=== PATIENT | male | born 1940 | race Caucasian/White ===

== ENCOUNTER 2016-08-31 07:37 | Emergency (ER) | payer MEDICARE, BC ==
[2016-08-31 07:43] VITALS: BP 140/73
--- NOTE | 2016-08-31 08:27 | UC ---
aleta Cordoba Timothy, scribed for Georgina Marquez MD on 08/31/16 at 0757 . Skin Complaint HPI - HPI Summary HPI Summary: Ivan Toro is a 76 yo male presenting to [facility] with an area of discolored skin on his RLE proximay fan since yesterday. He denies any pruritus, known trauma, or pain at the site. PT states he was working on a ladder yesterday cleaning windows and is unsure if related to this. He states the area has not grown any larger. He denies any known tick bite or expsosure. No fevers, chills , no red streaking, no edema. no wound or drainage. No change in size or color. He states he was working on a ladder yesterday, and may have bumped it without noticing. He currently is on a daily regimen of 81mg ASA. No known clotting or bleeding disorder. He is not in any current pain. pt without a h/o tick bites. No immunocompromised. His MHx includes HTN, deviated septum, uvula removed, left kidney stones. Pt medication list reviewed this visit. - History of Current Complaint Chief Complaint: UCSkin Time Seen by Provider: 08/31/16 08:09 Stated Complaint: SOFT TISSUE COMPLAINT Hx Obtained From: Patient Onset/Duration: Sudden Onset Onset Severity: Mild Current Severity: Mild Pain Intensity: 0 Pain Scale Used: 0-10 Numeric Location: Discrete, Other - RLE afn Character: Redness - ecchymosis Aggravating: Nothing Alleviating: Nothing Associated Signs & Symptoms: Positive: Negative, Rash - Allergy/Home Medications Allergies/Adverse Reactions: Allergies Allergy/AdvReac Type Severity Reaction Status Date / Time cat dander Allergy Intermediate Runny Nose Uncoded 08/12/14 07:45 dogs Allergy Intermediate Runny Nose Uncoded 08/12/14 07:45 Review of Systems Constitutional: Negative Skin: Other - RLE fan nikolski of erythema/ecchymosis Eyes: Negative ENT: Negative Respiratory: Negative Cardiovascular: Negative Gastrointestinal: Negative Genitourinary: Negative Motor: Negative Neurovascular: Negative Musculoskeletal: Negative Neurological: Negative Psychological: Negative All Other Systems Reviewed And Are Negative: Yes PMH/Surg Hx/FS Hx/Imm Hx Previously Healthy: Yes GI/ History: Kidney Stones - Surgical History Surgical History: Yes Surgery Procedure, Year, and Place: Deviated Septum; uvula removed; L kidney stone - Family History Known Family History: Positive: Cardiac Disease - mother, Other - mother of CVA no FHx bleeding disorder - Social History Lives: With Family Alcohol Use: Daily Substance Use Type: None Smoking Status (MU): Never Smoked Tobacco - Immunization History Most Recent Tetanus Shot: no recall Physical Exam Triage Information Reviewed: Yes Appearance: Well-Appearing, No Pain Distress, Well-Nourished Vital Signs: Initial Vital Signs Temp 98.4 F 08/31/16 07:40 Pulse 69 08/31/16 07:40 Resp 16 08/31/16 07:40 BP 140/73 08/31/16 07:40 Pulse Ox 100 08/31/16 07:40 Vital Signs Reviewed: Yes Eyes: Negative: Discharge ENT: Positive: Hearing grossly normal Neck: Positive: Supple Respiratory: Positive: No respiratory distress, No accessory muscle use Cardiovascular: Positive: Other: - 2+ PT Musculoskeletal Exam: Normal Musculoskeletal: Positive: Strength Intact, Other: - SLE b/l full flex/ext knee , ankle + great toe extension Neurological Exam: Normal Neurological: Positive: Alert Psychological Exam: Normal Skin: Positive: Other - right anterior midshin - pt with 2x3 area of mild ecchymosis, uniform color throughout. No edema. No red streaking. no crepitus. no central clearing. Non tender not raised Course/Dx - Course Course Of Treatment: Ivan Toro is a 76 yo male presenting to [facility] with an area of discolored skin on his RLE fan since yesterday. Pt is concerned for tick bite. I had a long discussion with pt regarding tick, lyme transmission, target lesions. Pt without known tick exposure. Not target appearing lesions - uniform, appears more ecchymosis. No open wounds. Not immunocompromised. d/w s/s infection, cellulitis - will monitor. No additional treatment. pt comfortable and in agreement. Return precautions discussed - Differential Diagnoses - Skin Complaint Differential Diagnoses: Cellulitis, Other - ecchymosis - Diagnoses Provider Diagnoses: contusion RLE Discharge - Discharge Plan Condition: Stable Disposition: HOME Patient Education Materials: Contusion in Adults (ED) Referrals: David Balderas MD [Primary Care Provider] - If Needed Additional Instructions: Monitor your wound - if you develop increase in size, red streaking, pain, fever , chills, or a white area in the center of your wound you should contact your doctor or return to the urgent care okay to alternate ibuprofen (advil, motrin) and tylenol as needed for pain Stay well hydrated Avoid further trauma to the area Call your doctor or return with questions or concerns Please follow up with your primary care physician regarding your visit to urgent care today. Return to urgent care with any new symptoms, questions, or concerns. The documentation as recorded by the aleta cleveland Timothy accurately reflects the service I personally performed and the decisions made by , Georgina Marquez MD.
== END 2016-08-31 08:23 | disposition home or self-care (01) ==
LOC: UCEAST 07:37
DX: S80.11XA Contusion of right lower leg, initial encounter (principal); X58.XXXA Exposure to other specified factors, initial encounter; Z79.82 Long term (current) use of aspirin; I10 Essential (primary) hypertension
CPT/HCPCS: 99211; G0463

== ENCOUNTER 2016-12-08 07:03 | Emergency (ER) | payer MEDICARE, BC ==
[2016-12-08] MEDS ORDERED: methylPREDNISolone 125 MG* 2 ML VIAL IM ONE (07:49)
[2016-12-08] MEDS ORDERED: diPHENhydraMINE PO* 25 MG PO ONE (07:50)
[2016-12-08 08:15] VITALS: BP 128/69
--- NOTE | 2016-12-18 16:51 | UC ---
Suraj Cordoba Nilda, scribed for Shalini Norris DO on 12/08/16 at 0800 . Skin Complaint HPI - HPI Summary HPI Summary: This patient is a 76 year old M presenting to [facility] accompanied by with a chief complaint of a constant diffuse pruritic rash that woke him last night. The rash is still present and located on his back, pelvic area, chest, bilateral UE, and bilateral LE. Symptoms aggravated and alleviated by nothing. Patient reports recent weight loss (18 lbs over the past 3 months) and stressors. He denies dizziness, lightheadedness, recent confusion, nausea, vomiting, diarrhea, abdominal pain or cramping, CP, cough, dyspnea, wheezing, swelling of the tongue or lips, fever, and chills. He has not used new medications, soaps, and detergents. He denies dietary changes and recent travel. - History of Current Complaint Chief Complaint: EDRashSkinAbscess Stated Complaint: RASH Hx Obtained From: Patient Onset/Duration: Sudden Onset, Lasting Hours, Still Present Timing: Constant Current Severity: Moderate Pain Intensity: 0 Pain Scale Used: 0-10 Numeric Location: Diffuse, Other - back, lower abdomen, bilaterally LE, chest, arms Character: Pruritus Aggravating Factor(s): Nothing Alleviating Factor(s): Nothing Associated Signs & Symptoms: Positive: Rash. Negative: Nausea, Vomiting, Difficulty Breathing, Fever, Chills, Cough, Wheezing, Abdominal Pain, Lightheadedness - Allergy/Home Medications Allergies/Adverse Reactions: Allergies Allergy/AdvReac Type Severity Reaction Status Date / Time cat dander Allergy Intermediate Runny Nose Uncoded 12/01/16 07:17 dogs Allergy Intermediate Runny Nose Uncoded 12/01/16 07:17 Review of Systems Constitutional: Negative - negative fever, chills, Other - recent weight loss Skin: Rash ENT: Negative - negative swelling of the tongue and lips Respiratory: Negative - negative cough, dyspnea and wheezing Cardiovascular: Negative - negative chest pain Gastrointestinal: Negative - Negative nausea, vomiting, diarrhea, and abdominal pain or cramping Psychological: Negative - negative confusion, lightheadedness, and dizziness. All Other Systems Reviewed And Are Negative: Yes PMH/Surg Hx/FS Hx/Imm Hx Respiratory History: Other - Negative seasonal allergies Other Respiratory History: Negative seasonal allergies - Surgical History Surgical History: Yes Surgery Procedure, Year, and Place: Deviated Septum; uvula removed; L kidney stone - Family History Known Family History: Positive: Cardiac Disease - mother, Other - mother of CVA, rheumatoid arthritis; no FHx bleeding disorder - Social History Alcohol Use: Daily Substance Use Type: None Smoking Status (MU): Never Smoked Tobacco - Immunization History Most Recent Influenza Vaccination: utd Most Recent Tetanus Shot: no recall Most Recent Pneumonia Vaccination: utd Physical Exam Triage Information Reviewed: Yes Appearance: Well-Appearing, No Pain Distress, Well-Nourished Vital Signs: Initial Vital Signs Temp 97.6 F 12/08/16 07:17 Pulse 59 12/08/16 07:17 Resp 18 12/08/16 07:17 BP 133/66 12/08/16 07:17 Vital Signs Reviewed: Yes Eyes: Positive: Conjunctiva Clear. Negative: Discharge ENT: Positive: Hearing grossly normal, Other: - No mucocutaneous manifestations , no sores in mouth. Negative: Muffled/hoarse voice Neck exam: Normal Neck: Positive: Supple Respiratory: Positive: Lungs clear, Normal breath sounds, No respiratory distress, No accessory muscle use Cardiovascular: Positive: RRR, No Murmur Abdomen Description: Positive: Nontender, Soft. Negative: Distended, Guarding Bowel Sounds: Positive: Present Musculoskeletal Exam: Normal Neurological: Positive: Alert, Muscle Tone Normal Psychological Exam: Normal Psychological: Positive: Age Appropriate Behavior Skin: Positive: rashes - Diffuse urticarial rash sparing his face Course/Dx - Course Course Of Treatment: This patient is a 76 year old M presenting to [facility] accompanied by with a chief complaint of a constant diffuse pruritic rash that woke him last night. The rash is located on his back, pelvic area, chest, bilateral UE, and bilateral LE. Symptoms aggravated and alleviated by nothing. Patient reports recent weight loss (18 lbs over the past 3 months) and stressors. He denies dizziness, lightheadedness, recent confusion, nausea, vomiting, diarrhea, abdominal pain or cramping, CP, cough, dyspnea, wheezing, swelling of the tongue or lips, fever, and chills. He has not used new medications, soaps, and detergents. He denies dietary changes and recent travel. In the ED course the patient was given a shot of prednisone and PO Benadryl. Patient will be discharged with a diagnosis of urticaria and elevated blood pressure without diagnosis of hypertension. He was given a prescription for prednisone. The patient was instructed to follow up with Dr. Balderas tomorrow. The patient is agreeable with this plan. - Diagnoses Provider Diagnoses: Urticaria and Elevated blood pressure without diagnosis of hypertension. Discharge - Discharge Plan Condition: Stable Disposition: HOME Prescriptions: predniSONE TAB* [Deltasone TAB*] 40 mg PO DAILY #8 tab Patient Education Materials: Diphenhydramine (By mouth), Urticaria (ED) Referrals: David Balderas MD [Primary Care Provider] - 1 Day Additional Instructions: CORTICOSTEROID MEDICATION: You have been given a medicine of the cortisone class. This medication is used to control inflammation or allergy. It is usually only given for a short period of time, until the acute process subsides. There are usually no side effects from short-term use of cortisone-like medications. Some persons feel an increased sense of well-being and are not sleepy at bedtime. Long-term use of cortisone medications is best avoided, unless required for a severe condition. If your condition does not remit, or relapses after the course of corticosteroid medication, you should consult your physician. Contact the physician if you develop lightheadedness, black or tarry stools , swelling of the legs, or significant rapid change in weight. Your blood pressure was elevated at this visit. That does not mean you have hypertension, it is probably due to your current condition. Please follow up with your primary care provider. The documentation as recorded by the Suraj cleveland Nilda accurately reflects the service I personally performed and the decisions made by , Shalini Norris DO.
== END 2016-12-08 08:30 | disposition home or self-care (01) ==
LOC: UCEAST 07:03
DX: L50.9 Urticaria, unspecified (principal); R03.0 Elevated blood-pressure reading, without diagnosis of hypertension; R63.4 Abnormal weight loss; Z87.442 Personal history of urinary calculi
CPT/HCPCS: 96372; 99212; A9270-GY; G0463; J2930

== ENCOUNTER 2018-06-22 07:51 | Emergency (ER) | payer MEDICARE, BC ==
[2018-06-22 08:01] VITALS: BP 132/74
--- NOTE | 2018-06-22 08:54 | UC ---
General HPI - HPI Summary HPI Summary: RN notes - awoke this am with left ankle pain denies trauma OK last night. Awoke with pain in post ankle this am. Can not attribute inciting event. + hxx gout, does take allopurinol but not red, puffly. No distal / prox pain. No hx similar. No fever / chills. Some "allergies" with mild runny nose cough, but no sob / cp /palp. No GI Issues reported. - History of Current Complaint Chief Complaint: UCLowerExtremity Stated Complaint: LT ANKLE PAIN Hx Obtained From: Patient Pain Intensity: 7 - Allergy/Home Medications Allergies/Adverse Reactions: Allergies Allergy/AdvReac Type Severity Reaction Status Date / Time cat dander Allergy Intermediate Runny Nose Uncoded 06/22/18 07:56 dogs Allergy Intermediate Runny Nose Uncoded 06/22/18 07:56 PMH/Surg Hx/FS Hx/Imm Hx Previously Healthy: Yes - see hpi - Surgical History Surgical History: Yes Surgery Procedure, Year, and Place: Deviated Septum;. uvula removed;. L kidney stone; - Family History Known Family History: Positive: Cardiac Disease - mother, Other - mother of CVA, rheumatoid arthritis; no FHx bleeding disorder - Social History Alcohol Use: Daily Substance Use Type: None Smoking Status (MU): Never Smoked Tobacco - Immunization History Most Recent Influenza Vaccination: utd Most Recent Tetanus Shot: no recall Most Recent Pneumonia Vaccination: utd Review of Systems All Other Systems Reviewed And Are Negative: Yes Constitutional: Positive: Negative, Other - see hpi Skin: Positive: Other - see hpi no rash Eyes: Positive: Other - see hpi ENT: Positive: Other - see hpi Respiratory: Positive: Other - see hpi Cardiovascular: Positive: Other - see hpi Gastrointestinal: Positive: Other - see hpi Genitourinary: Positive: Other - see hpi Motor: Positive: Other - see hpi Neurovascular: Positive: Other - see hpi Musculoskeletal: Positive: Other: - see hpi Neurological: Positive: Other - see hpi Psychological: Positive: Negative Is Patient Immunocompromised?: No Physical Exam Triage Information Reviewed: Yes Appearance: Well-Appearing, Well-Nourished Vital Signs: Initial Vital Signs Temp 98.4 F 06/22/18 07:57 Pulse 78 06/22/18 07:57 Resp 18 06/22/18 07:57 BP 132/74 06/22/18 07:57 Pulse Ox 99 06/22/18 07:57 Vital Signs Reviewed: Yes Eye Exam: Normal ENT Exam: Normal - grossly normal Neck exam: Normal Neck: Positive: Supple - supple for age, some ext evid djd Respiratory Exam: Normal - rr normal. no dyspnea, no tachypnea Cardiovascular Exam: Normal - hr regular, nondiaphoretic. Abdominal Exam: Normal - benign Musculoskeletal Exam: Other - tender post distal achilles and at insertion site -very tender. dp / pt palpable. Some dystrophic nails. good cap ref. No redness, swelling appreciated. No prox calf pain. Neurological Exam: Normal Psychological Exam: Normal Skin Exam: Normal - no visible or reported rash Course/Dx - Course Course Of Treatment: reviewed xray, d/w pt reviewed coa / tx plan. questions as posed answered to the best of my ability. - Diagnoses Provider Diagnosis: Tendonitis, Bone spur Discharge - Sign-Out/Discharge Documenting (check all that apply): Patient Departure All imaging exams completed and their final reports reviewed: Yes - Discharge Plan Condition: Stable Disposition: HOME Patient Education Materials: Tendinitis (ED), Heel Spur (ED) Referrals: David Balderas MD [Primary Care Provider] - Additional Instructions: Follow up with your Print Inspector - call today for appointment 1-2 weeks. Seek medical attention for worse or new problems. Cam boot for comfort. Do not wear if it hurts you more. - Billing Disposition and Condition Condition: STABLE Disposition: Home
== END 2018-06-22 09:53 | disposition home or self-care (01) ==
LOC: UCEAST 07:51
DX: M77.32 Calcaneal spur, left foot (principal); M10.9 Gout, unspecified; Z91.048 Other nonmedicinal substance allergy status
CPT/HCPCS: 99213; G0463

== ENCOUNTER 2018-09-14 08:18 | Emergency (ER) | payer MEDICARE, BC ==
[2018-09-14 08:28] VITALS: BP 150/72
--- NOTE | 2018-09-14 08:52 | UC ---
Back Pain HPI - HPI Summary HPI Summary: 78 yo male with known lumbar spinal stenosis presents with lower back pain and decreased ROM for about 5 days no UTI symptoms no leg pain or weakness sees a Back specialist at [facility] and has appt in 4 days no falls /injuries - History of Current Complaint Chief Complaint: UCBackPain Stated Complaint: LOWER BACK PAIN Time Seen by Provider: 09/14/18 08:52 Hx Obtained From: Patient Onset/Duration: Gradual Onset, Lasting Days Timing: Constant Severity Initially: Moderate Severity Currently: Moderate Pain Intensity: 8 Pain Scale Used: 0-10 Numeric Back Pain: Is Discrete @ - see image, Radiates To - no radiation Character: Throbbing, Spasmodic, Stiffness Aggravating Factor(s): Movement, Bending Alleviating Factor(s): Rest, OTC Meds Associated Signs And Symptoms: Positive: Negative Full Body (No Head): 1 - pain here - Allergies/Home Medications Allergies/Adverse Reactions: Allergies Allergy/AdvReac Type Severity Reaction Status Date / Time cat dander Allergy Intermediate Runny Nose Uncoded 09/14/18 08:28 dogs Allergy Intermediate Runny Nose Uncoded 09/14/18 08:28 PMH/Surg Hx/FS Hx/Imm Hx Previously Healthy: Yes Endocrine History: Dyslipidemia Cardiovascular History: Hypertension - Surgical History Surgical History: Yes Surgery Procedure, Year, and Place: Deviated Septum;. uvula removed;. L kidney stone; - Family History Known Family History: Positive: Cardiac Disease - mother, Hypertension, Other - mother of CVA, rheumatoid arthritis; no FHx bleeding disorder - Social History Alcohol Use: Daily Substance Use Type: None Smoking Status (MU): Never Smoked Tobacco - Immunization History Most Recent Influenza Vaccination: utd Most Recent Tetanus Shot: no recall Most Recent Pneumonia Vaccination: utd Review of Systems All Other Systems Reviewed And Are Negative: Yes Constitutional: Positive: Negative Skin: Positive: Negative Eyes: Positive: Negative ENT: Positive: Negative Respiratory: Positive: Negative Cardiovascular: Positive: Negative Gastrointestinal: Positive: Negative Genitourinary: Positive: Negative Motor: Positive: Negative Neurovascular: Positive: Negative Musculoskeletal: Positive: Arthralgia - lower back Neurological: Positive: Negative Psychological: Positive: Negative Physical Exam Triage Information Reviewed: Yes Appearance: Well-Appearing, No Pain Distress, Well-Nourished Vital Signs: Initial Vital Signs Temp 98.7 F 09/14/18 08:24 Pulse 65 09/14/18 08:24 Resp 18 09/14/18 08:24 BP 150/72 09/14/18 08:24 Pulse Ox 97 09/14/18 08:24 Vital Signs Reviewed: Yes Eyes: Positive: Conjunctiva Clear ENT: Negative: Hearing grossly normal, Nasal congestion, Nasal drainage, Trismus , Muffled voice, Hoarse voice Dental: Negative: Abscess @ Neck: Positive: Supple Respiratory: Positive: Lungs clear, Normal breath sounds, No respiratory distress, No accessory muscle use Cardiovascular: Positive: RRR. Negative: Tachycardia, Bradycardia Abdomen Description: Positive: Nontender, Soft. Negative: Bruit Bowel Sounds: Positive: Present Neurological: Positive: Alert Psychological Exam: Normal Skin Exam: Normal - Additional Comments back- limited flexion, fair lateral twisting, - SLR strength and sensation intact Diagnostics - Laboratory Lab Results: UA - protein/- leuks Back Pain Course/Dx - Differential Dx/Diagnosis Provider Diagnosis: Lumbago, Lumbar spinal stenosis Discharge - Sign-Out/Discharge Documenting (check all that apply): Patient Departure All imaging exams completed and their final reports reviewed: No Studies - Discharge Plan Condition: Stable Disposition: HOME Patient Education Materials: Lumbar Spinal Stenosis (ED) Referrals: Debi Song MD [Primary Care Provider] - Additional Instructions: See you back specialist next week as planned aleve 2 pills twice daily with food for pain tylenol 500 mg every 4 hours as needed for pain - Billing Disposition and Condition Condition: STABLE Disposition: Home
== END 2018-09-14 09:12 | disposition home or self-care (01) ==
LOC: UCEAST 08:18
DX: M48.061 Spinal stenosis, lumbar region without neurogenic claudication (principal); I10 Essential (primary) hypertension
CPT/HCPCS: 81003; 99212; G0463